=== PATIENT | male | born 1955 | race African-American/Black ===

== ENCOUNTER → 2018-02-20 08:24 | Outpatient (CLI) | payer OTHER, SELFPAY ==
--- NOTE | 2018-02-20 | DI.CT.S_ITS ---
PROCEDURE: CT CHEST ABD PEL W CON INDICATIONS: MALIGNANT NEOPLASM OF PROSTATE TECHNIQUE: After the administration of oral and intravenous contrast, 5 mm thick sections acquired from the lung apices to the symphysis. 5 mm coronal and sagittal reformats were performed, with additional 7 mm coronal MIP reformats through the lungs. For radiation dose reduction, the following was used: automated exposure control, adjustment of mA and/or kV according to patient size. COMPARISON: [facility], CT, CHEST/ABD/PEL WITH CONTRAST, 03/27/2016, 12:05. [facility], CT, ABDOMEN/PELVIS WITH CONTRAST, 05/06/2017, 10:57. [facility], CT, ABDOMEN/PELVIS WITH CONTRAST, 09/20/2017, 12:27. [facility], [place], BONE SCAN WHOLE BODY, 10/16/2017, 12:56. FINDINGS: Image quality: Excellent. CHEST: Lungs and pleura: Scattered 3-4 mm pulmonary nodules are again unchanged. Pleural-parenchymal scar in the left lower lobe is also unchanged. No acute airspace opacities. No pleural effusions or pneumothorax. Central and peripheral airways appear patent and normal in caliber. Mediastinum: Heart size is normal. No pericardial effusion. No mediastinal or hilar adenopathy by size criteria. Thoracic aorta and central pulmonary arteries are normal in size. Esophagus is normal in caliber. No hiatal hernia. Chest wall: Left-sided port with tip in the SVC. No axillary or supraclavicular adenopathy by size criteria. Thyroid gland appears normal. ABDOMEN: Solid organs: Liver is normal in size and enhancement. Gallbladder appears normal. Biliary system is non dilated. Pancreas enhances normally. Spleen is normal in size and enhancement. No adrenal nodules. Kidneys demonstrate normal size and enhancement, without hydronephrosis. Small partially exophytic cortical cyst interpolar left kidney and posterior right kidney. Peritoneum and bowel: Bowel loops demonstrate normal wall thickness and caliber. Normal appendix. No free fluid or air. Nodes and vessels: No retroperitoneal or mesenteric adenopathy by size criteria. Aorta and inferior vena cava are normal in size. Miscellaneous: Small fat filled umbilical hernia. PELVIS: Genitourinary: Bladder wall thickness is normal. Miscellaneous: No inguinal hernias or adenopathy. Bones: Sclerotic lesions consistent with bone metastases again noted such as medial right clavicle, superior sternum, L1 and right ilium No vertebral body compression fractures. IMPRESSION: 1. 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 See nuclear bone scan of 10/16/2017. 2. No soft tissue or ceci metastases identified. Numerous sub-5 mm pulmonary nodules and scarring left lower lobe appear unchanged from 2016 exams 3. Small bilateral renal cortical hypodensities consistent with cysts and unchanged. Dictated by: Tejinder Craig M.D. on 02/20/2018 at 13:44 Approved by: Tejinder Craig M.D. on 02/20/2018 at 14:03
== END ==
PROVIDERS: PCP General Practice; Visit Provider General Practice
DX: C61 Malignant neoplasm of prostate (principal); C79.51 Secondary malignant neoplasm of bone; R91.8 Other nonspecific abnormal finding of lung field; N28.1 Cyst of kidney, acquired
CPT/HCPCS: 71260; 74177; Q9967

== ENCOUNTER → 2018-06-24 07:17 | Outpatient (CLI) | payer OTHER, SELFPAY ==
--- NOTE | 2018-06-24 07:19 | DI.NM.S_ITS ---
PROCEDURE: [place] BONE SCAN WHOLE BODY RADIOPHARMACEUTICAL: 21.2 mCi Tc-99m MDP IV. INDICATIONS: PROSTATE CANCER TECHNIQUE: Delayed whole-body scintigrams were obtained approximately 3-4 hours after intravenous injection of radiotracer. Anterior and posterior views were acquired from vertex to feet. COMPARISON: [facility], CT, CT CHEST ABD PEL W CON, 06/24/2018, 8:57. [facility], [place], BONE SCAN WHOLE BODY, 10/16/2017, 12:56. FINDINGS: Since 10/16/17, there is new tracer activity involving the left upper thoracic spine possibly at the T2 costovertebral junction. Additional fainter focus of tracer activity seen at the left T10 costovertebral junction also new. Elsewhere there is unchanged thoracolumbar spine, sternum, pelvic and rib tracer activity. IMPRESSION: New or increased tracer activity in the region of the left T2 costovertebral junction, Additional new or increased tracer activity at the left T10 costovertebral junction. While these areas are not well correlated to a discrete lesion on the same day comparison CT, findings are suspicious for early new or progressive osseous metastases. Dictated by: Bulmaro Leal M.D. on 06/24/2018 at 14:48 Approved by: Bulmaro Leal M.D. on 06/24/2018 at 15:02
--- NOTE | 2018-06-24 09:20 | DI.CT.S_ITS ---
PROCEDURE: CT CHEST ABD PEL W CON INDICATIONS: restage prostate cancer TECHNIQUE: After the administration of oral and intravenous contrast, 5 mm thick sections acquired from the lung apices to the symphysis. 5 mm coronal and sagittal reformats were performed, with additional 7 mm coronal MIP reformats through the lungs. For radiation dose reduction, the following was used: automated exposure control, adjustment of mA and/or kV according to patient size. COMPARISON: [facility], CT, CHEST/ABD/PEL WITH CONTRAST, 08/29/2015, 10:43. [facility], CT, CT CHEST ABD PEL W CON, 02/20/2018, 9:42. FINDINGS: Image quality: Excellent. CHEST: Lungs and pleura: Platelike atelectasis or scar is present within the superior segment of the left lower lobe. Mild rounded atelectasis is present at the left lung base, unchanged from the study dated 02/20/18. No pulmonary nodules. No acute airspace opacities. No pleural effusion or pneumothorax. Mediastinum: Heart size is normal. No pericardial effusion. No mediastinal or hilar adenopathy by size criteria. Thoracic aorta and central pulmonary arteries are normal in size. Scattered atheromatous calcifications are present within the aortic arch. Esophagus is normal in caliber. No hiatal hernia. Chest wall: There is a left Port-A-Cath, the tip of which is in the cavoatrial junction. No axillary or supraclavicular adenopathy by size criteria. Thyroid gland is unremarkable. ABDOMEN: Solid organs: Liver is normal in size and enhancement. Gallbladder is unremarkable. Biliary system is non dilated. Pancreas enhances normally. Spleen is normal in size and enhancement. No adrenal nodules. Kidneys demonstrate normal size and enhancement, without hydronephrosis. Peritoneum and bowel: Bowel loops demonstrate normal wall thickness and caliber. The appendix is thin walled and gas filled. No free fluid or air. Nodes and vessels: No retroperitoneal or mesenteric adenopathy by size criteria. Aorta and inferior vena cava are normal in size. Miscellaneous: No ventral hernias. PELVIS: Genitourinary: Bladder wall thickness is normal. Miscellaneous: No inguinal adenopathy. There is a small left inguinal hernia. Bones: There is scattered sclerotic foci within the pelvis and thoracolumbar spine. These have a stable appearance when compared with the recent CT dated 02/20/18. These are decreased in size when compared with prior study suggesting response to therapy. No new bony lesions. IMPRESSION: 1. No findings to suggest tumor recurrence or metastasis. Dictated by: Rosemary Goodman M.D. on 06/24/2018 at 10:22 Approved by: Rosemary Goodman M.D. on 06/24/2018 at 10:30
== END ==
PROVIDERS: Family Provider Internal Medicine; PCP Internal Medicine; Visit Provider Internal Medicine Hematology & Oncology
DX: C61 Malignant neoplasm of prostate (principal)
CPT/HCPCS: 71260; 74177; 78306; A9503; Q9967

== ENCOUNTER → 2019-02-03 07:26 | Outpatient (CLI) | payer OTHER, SELFPAY ==
--- NOTE | 2019-02-03 07:28 | DI.NM.S_ITS ---
PROCEDURE: [place] BONE SCAN WHOLE BODY RADIOPHARMACEUTICAL: 21.5 mCi Tc-99m MDP IV. INDICATIONS: f/u prostate cancer TECHNIQUE: Delayed whole-body scintigrams were obtained approximately 3-4 hours after intravenous injection of radiotracer. Anterior and posterior views were acquired from vertex to feet. COMPARISON: [facility], CT, ABDOMEN/PELVIS WITH CONTRAST, 09/20/2017, 12:27. [facility], CT, CHEST/ABD/PEL WITH CONTRAST, 12/02/2015, 10:45. [place], [place], BONE SCAN WHOLE BODY, 08/29/2015, 12:56. [facility], CT, CT CHEST ABD PEL W CON, 02/03/2019, 9:13. [place], [place], BONE SCAN WHOLE BODY, 10/16/2017, 12:56. [place], [place] BONE SCAN WHOLE BODY, 06/24/2018, 11:00. FINDINGS: Again noted are foci of increased uptake in the left second, ninth and 10th ribs, right sixth and seventh ribs, L2 vertebral body, and the right iliacbone. Compared with the last bone scan of 06/24/2018, the findings are stable. Increased uptake in the upper sternum at the sternomanubrial junction appears unchanged and may be degenerative in nature. There is low level increased uptake in cervical, thoracic and lumbar spine with distribution indistinguishable from degenerative disc and facet disease; early metastasis to spine could be obscured by degenerative changes. There are foci of increased periarticular activity involving shoulders, sternoclavicular joints, elbows, wrists, hands, hips, SI joints, knees, ankles and feet, compatible with degenerative/arthritic changes. IMPRESSION: Stable bone scan. Dictated by: Odalys Martínez M.D. on 02/03/2019 at 17:19 Approved by: Odalys Martínez M.D. on 02/03/2019 at 18:29
--- NOTE | 2019-02-03 08:15 | DI.CT.S_ITS ---
PROCEDURE: CT CHEST ABD PEL W CON INDICATIONS: f/u prostate cancer TECHNIQUE: After the administration of oral and intravenous contrast, 5 mm thick sections acquired from the lung apices to the symphysis. 5 mm coronal and sagittal reformats were performed, with additional 7 mm coronal MIP reformats through the lungs. For radiation dose reduction, the following was used: automated exposure control, adjustment of mA and/or kV according to patient size. COMPARISON: [facility], CT, CT CHEST ABD PEL W CON, 06/24/2018, 8:57. FINDINGS: Image quality: Excellent. CHEST: Lungs and pleura: Scarring/atelectasis within superior segment of left lower lobe is again seen. Mild rounded atelectasis at left lung base is also seen. Both are unchanged from previous study. No discrete pulmonary nodule or mass. No pleural effusions or pneumothorax. Central and peripheral airways appear patent and normal in caliber. Mediastinum: Heart size is normal. No pericardial effusion. No mediastinal or hilar adenopathy by size criteria. Thoracic aorta and central pulmonary arteries are normal in size. Esophagus is normal in caliber. No hiatal hernia. Chest wall: Left chest wall Port-A-Cath tip is in SVC. No axillary or supraclavicular adenopathy by size criteria. Thyroid gland is within normal limits the. ABDOMEN: Solid organs: Liver is normal in size and enhancement. Gallbladder is unremarkable. Biliary system is non dilated. Pancreas enhances normally. Spleen is normal in size and enhancement. No adrenal nodules. Kidneys demonstrate normal size and enhancement, without hydronephrosis. Peritoneum and bowel: Bowel loops demonstrate normal wall thickness and caliber. No free fluid or air. Mild fecal stasis in the colon is seen. Normal appendix is visualized. Nodes and vessels: No retroperitoneal or mesenteric adenopathy by size criteria. Aorta and inferior vena cava are normal in size. Miscellaneous: No ventral hernias. PELVIS: Genitourinary: Bladder wall thickness is normal. Miscellaneous: No inguinal hernias or adenopathy. Bones: Multiple scattered sclerotic foci are again seen in the bony pelvis and thoracolumbar spine unchanged in size and appearance from prior studies. No gross new bony lesion is seen. No vertebral body compression fractures. IMPRESSION: 1. No significant changes from previous study. Stable appearing sclerotic foci scattered in bony pelvis and proximal lumbar spine, likely represent treated lesions. No new bony lesion is seen. 2. No other lesions are seen to suggest recurrence or new area of metastatic disease. Dictated by: Erasmo Rivera M.D. on 02/03/2019 at 14:42 Approved by: Erasmo Rivera M.D. on 02/03/2019 at 15:03
== END ==
PROVIDERS: Family Provider Internal Medicine; PCP Internal Medicine; Referring Provider Internal Medicine Hematology & Oncology
DX: C61 Malignant neoplasm of prostate (principal)
CPT/HCPCS: 71260; 74177; 78306; A9503; Q9967

== ENCOUNTER → 2020-04-06 09:58 | Outpatient (CLI) | payer MEDICARE, OTHER, SELFPAY ==
--- NOTE | 2020-04-06 10:02 | DI.NM.S_ITS ---
PROCEDURE: [place] BONE SCAN WHOLE BODY RADIOPHARMACEUTICAL: 22.0 mCi Tc-99m MDP IV. INDICATIONS: prostate cancer TECHNIQUE: Delayed whole-body scintigrams were obtained approximately 3-4 hours after intravenous injection of radiotracer. Anterior and posterior views were acquired from vertex to feet. COMPARISON: [facility], [place], CT CHEST ABD PEL W CON, 04/06/2020, 11:10. [place], [place] BONE SCAN WHOLE BODY, 06/24/2018, 11:00. [place], [place], BONE SCAN WHOLE BODY, 10/16/2017, 12:56. [place], [place] BONE SCAN WHOLE BODY, 02/03/2019, 10:59. FINDINGS: Foci of relative intense radiotracer uptake noted in the right 6th rib, right 7th rib, left 2nd rib, left 9th rib, left 10th rib, the L2 vertebral body, the upper sternum and in the right iliac bone which are stable compared to February 03, 2019. Relatively mild radiotracer uptake identified in the shoulders bilaterally, the sternoclavicular joints bilaterally, the spine, the sacroiliac joints bilaterally, knees bilaterally, ankles bilaterally and mid feet bilaterally compatible with osteoarthritis. No areas of photopenia identified in the osseous skeleton. No abnormal soft tissue uptake. Activity in the kidneys is normal and symmetric. IMPRESSION: 1. Osseous metastatic disease involving ribs bilaterally, the sternum, the L2 vertebral body in the right iliac bone stable compared to February 03, 2019. 2. No new osseous metastatic lesions. Dictated by: Mar Tony MD, PhD on 04/06/2020 at 14:27 Approved by: Mar Tony MD, PhD on 04/06/2020 at 14:31
--- NOTE | 2020-04-06 10:02 | DI.CT.S_ITS ---
PROCEDURE: CT CHEST ABD PEL W CON INDICATIONS: prostate cancer TECHNIQUE: After the administration of oral and intravenous contrast, 5 mm thick sections acquired from the lung apices to the symphysis. 5 mm coronal and sagittal reformats were performed, with additional 7 mm coronal MIP reformats through the lungs. For radiation dose reduction, the following was used: automated exposure control, adjustment of mA and/or kV according to patient size. COMPARISON: [facility], CT, CHEST/ABD/PEL WITH CONTRAST, 03/27/2016, 12:05. [facility], , CT THORAX/ABDOMEN/PELVIS WITH CONTRAST, 07/20/2019, 9:05. [facility], [place], [place] BONE SCAN WHOLE BODY, 04/06/2020, 13:38. [facility], CT, CT CHEST ABD PEL W CON, 02/20/2018, 9:42. [facility], CT, CT CHEST ABD PEL W CON, 02/03/2019, 9:13. [facility], CT, CT CHEST ABD PEL W CON, 06/24/2018, 8:57. FINDINGS: Image quality: Excellent. CHEST: Lungs and pleura: No acute airspace opacities. Stable scarring/atelectasis within the superior segment of the left lower lobe as well as mild rounded atelectasis of the left lung base. Multiple stable sub 5 mm pulmonary nodules scattered in the bilateral hemithoraces since March 27, 2016 CT examination. No pleural effusions or pneumothorax. Central and peripheral airways appear patent and normal in caliber. Mediastinum: Heart size is normal. Scattered atherosclerotic calcifications of the coronary arteries are noted. No pericardial effusion. No mediastinal or hilar adenopathy by size criteria. Thoracic aorta and central pulmonary arteries are normal in size. Esophagus is normal in caliber. No hiatal hernia. Chest wall: No axillary or supraclavicular adenopathy by size criteria. Thyroid gland is unremarkable. Left -sided tunneled port device is in place. ABDOMEN: Solid organs: Liver is normal in size and enhancement. Gallbladder is unremarkable. Biliary system is non dilated. Pancreas enhances normally. Spleen is normal in size and enhancement. No adrenal nodules. Kidneys demonstrate normal size and enhancement, without hydronephrosis. Redemonstration of multiple small bilateral renal hypodensities likely representing renal cysts. Peritoneum and bowel: Bowel loops demonstrate normal wall thickness and caliber. No free fluid or air. Normal appendix. Nodes and vessels: No retroperitoneal or mesenteric adenopathy by size criteria. Scattered atherosclerotic calcifications of the abdominal aorta and iliac vessels without aneurysmal dilatation. Miscellaneous: There is a fat-containing umbilical hernia without acute inflammation. No ventral hernias. PELVIS: Genitourinary: Bladder wall thickness is normal. Miscellaneous: No pelvic adenopathy. Left fat containing inguinal hernia without acute inflammatory changes. Bones: Multiple sclerotic lesions are again noted throughout the skeleton. There is corresponding increased radiotracer uptake in the medial left 2nd rib, L2 vertebral body, upper sternum, and the right iliac bone. No definite CT osseous lesions corresponding with increased radiotracer uptake in the right 6th and 7th ribs, left 2nd, 9th, and 10th ribs. There are small sclerotic lesions noted along the bilateral sacroiliac joints without focal increased uptake on today's bone scan. However, this may be obscured by moderate increased radiotracer uptake involving both sacroiliac joints. No acute vertebral body compression fractures. No new osseous lesions identified. IMPRESSION: 1. Stable CT appearance of widespread osseous metastatic disease without evidence for new lesions. There is correlating increased radiotracer uptake involving the medial left 2nd rib, L2 vertebral body, upper sternum, and the right iliac bone. Other areas of increased uptake are without correlating CT findings. 2. Otherwise, CT chest, abdomen, and pelvis without other new abnormalities to suggest disease recurrence or new areas of metastatic disease. 3. Other chronic findings as above. Dictated by: Jason Sabillon M.D. on 04/07/2020 at 20:23 Approved by: Jason Sabillon M.D. on 04/07/2020 at 20:59
== END ==
PROVIDERS: Family Provider Internal Medicine; PCP Internal Medicine; Referring Provider Internal Medicine; Visit Provider Internal Medicine Hematology & Oncology
DX: C61 Malignant neoplasm of prostate (principal); C79.51 Secondary malignant neoplasm of bone
CPT/HCPCS: 71260; 74177; 78306; A9503; Q9967

== ENCOUNTER → 2020-06-03 07:39 | Outpatient (CLI) | payer MEDICARE, OTHER, SELFPAY ==
--- NOTE | 2020-06-03 | DI.MRI.S_ITS ---
PROCEDURE: MR THORACIC SPINE WO/W CON INDICATIONS: Malignant neoplasm of prostate TECHNIQUE: Noncontrast sagittal T1 spin echo and T2 fast spin echo, sagittal STIR, axial T1 and T2 fast spin echo through the thoracic spine. After the administration of contrast, axial and sagittal T1 spin echo with fat saturation through the thoracic spine. COMPARISON: [facility], CT, CT CHEST ABD PEL W CON, 04/06/2020, 11:10. [facility], MR, MR LUMBAR SPINE WO/W CON, 06/03/2020, 9:04. [facility], [place], [place] BONE SCAN WHOLE BODY, 04/06/2020, 13:38. FINDINGS: Image quality: Excellent. Alignment and curvature: There is normal bony alignment. Marrow: 5 mm signal change present within the T5 vertebral body is indeterminate demonstrating T1 hypointensity and T2 hyperintensity although no definite enhancement. This could be due to small size. No fracture seen. A presumed Schmorl's node involving the superior endplate of T7. Spinal cord: Visualized spinal cord is of normal signal and size, without abnormal enhancement. Paraspinous soft tissues: No paravertebral masses or abnormal enhancement. Miscellaneous: Central canal and foramina appear widely patent at all scanned levels. IMPRESSION: Indeterminate focal signal change involving the T5 vertebral body, technically nonspecific and recommend continued close surveillance to exclude early metastatic disease. Dictated by: Bulmaro Leal M.D. on 06/03/2020 at 10:44 Approved by: Bulmaro Leal M.D. on 06/03/2020 at 10:53
--- NOTE | 2020-06-03 | DI.MRI.S_ITS ---
PROCEDURE: MR LUMBAR SPINE WO/W CON INDICATIONS: Malignant neoplasm of prostate TECHNIQUE: Noncontrast sagittal T1 spin echo and T2 fast spin echo, sagittal STIR, axial T1 and T2 fast spin echo through the lumbar spine. In cases with scoliosis, additional coronal T2 fast spin echo may be performed. After the administration of contrast, sagittal and axial T1 spin echo with fat saturation through the lumbar spine. COMPARISON: [facility], CT, CT CHEST ABD PEL W CON, 04/06/2020, 11:10. [facility], [place], [place] BONE SCAN WHOLE BODY, 04/06/2020, 13:38. [facility], MR, MR THORACIC SPINE WO/W CON, 06/03/2020, 8:39. FINDINGS: Image quality: Excellent. Alignment and curvature: There is normal bony alignment. Marrow: Several foci of abnormal signal can be seen within the bone marrow, with decreased T1 weighted and T2 weighted signal with minimally increased STIR signal and increased enhancement. The most prominent of these can be seen within the posterior L2 vertebral body, the superior T1 vertebral body and the L1 spinous process. Smaller abnormal foci are seen elsewhere. Spinal cord: Conus medullaris terminates at the L1 level. Visualized spinal cord demonstrates normal signal, without suspicious enhancement. Paraspinous soft tissues: No paravertebral masses or abnormal enhancement. T12-L1: Normal appearance. L1-L2: The disc height and disk signal are well-preserved. Mild generalized disc bulge is seen. No significant neural foraminal or central canal narrowing can be seen. L2-L3: The disc height and disc signal are relatively well preserved. Moderate disc bulge is seen, with a central disc protrusion. Mild facet joint hypertrophy is seen. There is mild to moderate right-sided and no significant left-sided neural foraminal narrowing seen. Moderate central canal narrowing is seen. L3-L4: The disc height and disk signal are well-preserved. Mild to moderate disc bulge is seen, with a central disc protrusion. Mild facet joint hypertrophy is seen. There is a mild right-sided and no significant left-sided neural foraminal narrowing seen. Moderate central canal narrowing is seen. L4-L5: The disc height and disk signal are well-preserved. Moderate disc bulge is seen, with a central disc protrusion. Moderate facet joint hypertrophy is seen. There is at least moderate bilateral neural foraminal narrowing seen. There is a degree of compression seen upon the exiting nerve roots. Moderate central canal narrowing is seen. L5-S1: The disc height and disk signal are well-preserved. Mild generalized disc bulge is seen. Mild facet joint hypertrophy is seen. Mild bilateral neural foraminal narrowing is seen. Minimal central canal narrowing is seen. IMPRESSION: Multiple foci of abnormal bone marrow signal are seen, which are confirmatory for bony metastatic disease. Multiple levels of degenerative change are seen, which are most prominent at the L4-5 level. Dictated by: Maurizio Bridgse M.D. on 06/03/2020 at 9:29 Approved by: Maurizio Bridges M.D. on 06/03/2020 at 9:38
--- NOTE | 2020-06-03 07:41 | DI.MRI.S_ITS ---
PROCEDURE: MR PELIS WO/W CON INDICATIONS: prostate cancer ,metastatic, rising PSA TECHNIQUE: Coronal HASTE, axial T1 FSE with fat saturation, 3-plane nonbreath-hold T2 FSE. After the administration of contrast, dynamic axial, delayed axial and coronal VIBE or 2-D FLASH with fat saturation through the pelvis. Optional diffusion weighted imaging and ADC may be performed. COMPARISON: [facility], CT, CT CHEST ABD PEL W CON, 04/06/2020, 11:10. [facility], [place], [place] BONE SCAN WHOLE BODY, 04/06/2020, 13:38. FINDINGS: Image quality: Diffusion weighted and dynamic contrast enhanced images are diagnostic. Prostate: Gland size is 3 x 2.2 x 3.4 cm; ellipsoid gland volume is 12 mL. Diffusely decreased T2 signal intensity throughout the peripheral zone and central zone is most likely secondary to prior treatment. A focal area of capsular irregularity is seen at the left lateral aspect of the mid gland with associated early contrast hyperenhancement that involves the left peripheral zone and extends into the central zone, which could represent a lesion with focal extracapsular extension. Lesion abuts the neurovascular bundle without definite involvement. No convincing focal diffusion restriction is seen on DWI/ADC images. The seminal vesicles are small and symmetric in size. Genitourinary system: Bladder wall thickness is normal. Distal ureters are non distended. Bowel and peritoneum: No pathologic free pelvic fluid. Inferior colon and small bowel loops are normal in caliber. Nodes and vessels: No pelvic or inguinal adenopathy by size criteria. Iliac vessels are normal in caliber. Soft tissues: Small fat containing inguinal hernias are seen bilaterally. Bones: A 2.2 cm osseous lesion is seen in the posterior right iliac bone that is suspicious for osseous metastatic disease. An 8 mm osseous lesion is seen in the left anterior iliac bone. A 5 mm focus is seen in the left ischial tuberosity. Additional scattered tiny foci of abnormal signal in the included pelvic bones may represent metastatic disease. There is fatty replacement of the marrow in the lower sacrum and coccyx that could represent post radiation changes. IMPRESSION: 1. Focal 9 mm area of capsular irregularity at the left lateral aspect of the prostate with ill-defined early contrast hyperenhancement is suspicious for patient's known primary prostate carcinoma. However, there is no significant diffusion restriction in this location and T2 weighted images demonstrate diffusely decreased intensity throughout the prostate that may be related to prior treatment changes. No well-defined focal lesion is seen. The area of capsular irregularity abuts the neurovascular bundle without definite involvement. Recommend correlation with clinical history. 2. Multiple marrow placing masses are seen throughout the pelvic bones, the largest of which is located in the right posterior iliac bone. Findings are consistent with patient's known osseous metastatic disease. 3. No significantly enlarged pelvic lymph nodes are identified. Dictated by: Walter Rivera M.D. on 06/03/2020 at 13:33 Approved by: Walter Rivera M.D. on 06/03/2020 at 14:20
== END ==
PROVIDERS: Family Provider Internal Medicine; PCP Internal Medicine; Referring Provider Internal Medicine Hematology & Oncology; Visit Provider Internal Medicine Hematology & Oncology
DX: C61 Malignant neoplasm of prostate (principal); C79.51 Secondary malignant neoplasm of bone; R97.21 Rising PSA following treatment for malignant neoplasm of prostate; M47.816 Spondylosis without myelopathy or radiculopathy, lumbar region
CPT/HCPCS: 72157; 72158; 72197; A9579

== ENCOUNTER → 2020-08-31 08:04 | Outpatient (CLI) | payer MEDICARE, OTHER, SELFPAY ==
--- NOTE | 2020-08-31 08:07 | DI.NM.S_ITS ---
PROCEDURE: [place] BONE SCAN WHOLE BODY RADIOPHARMACEUTICAL: 22.0 mCi Tc-99m MDP IV. INDICATIONS: metastatic prostate cancer TECHNIQUE: Delayed whole-body scintigrams were obtained approximately 3-4 hours after intravenous injection of radiotracer. Anterior and posterior views were acquired from vertex to feet. COMPARISON: [place], [place], BONE SCAN WHOLE BODY, 10/16/2017, 12:56. [place], [place] BONE SCAN WHOLE BODY, 02/03/2019, 10:59. [place] BONE SCAN WHOLE BODY, 04/06/2020, 13:38. [facility], CT, CT CHEST ABD PEL W CON, 08/31/2020, 9:13. FINDINGS: Again noted are foci of increased uptake involving left 2nd, 9th and 10th ribs, the right 6th and 7th ribs, L2 vertebral body, right iliac bone adjacent to the sacroiliac joint, unchanged compared with the last bone scan on 04/06/2020. No new lesions are identified. Increased uptake in the sternomanubrial junction is likely degenerative in nature. Degenerative changes are noted in multiple peripheral joints. IMPRESSION: Stable bone scan with multiple foci of abnormal uptake suspicious compatible with osseous metastases. Dictated by: Odalys Martínez M.D. on 08/31/2020 at 14:05 Approved by: Odalys Martínez M.D. on 08/31/2020 at 14:18
--- NOTE | 2020-08-31 09:27 | DI.CT.S_ITS ---
PROCEDURE: CT CHEST ABD PEL W CON INDICATIONS: metastatic prostate cancer TECHNIQUE: After the administration of oral and intravenous contrast, 5 mm thick sections acquired from the lung apices to the symphysis. 5 mm coronal and sagittal reformats were performed, with additional 7 mm coronal MIP reformats through the lungs. For radiation dose reduction, the following was used: automated exposure control, adjustment of mA and/or kV according to patient size. COMPARISON: [facility], [place], [place] BONE SCAN WHOLE BODY, 04/06/2020, 13:38. [facility], CT, CT CHEST ABD PEL W CON, 04/06/2020, 11:10. FINDINGS: Image quality: Excellent. CHEST: Lungs and pleura: Chronic scar formation in the posterior aspect of the left upper and lower lobes. Chronic atelectatic changes/scar at the posterior left lung base with thickening of the overlying subpleural fat. Several sub 5 mm biapical ground-glass lung nodules, unchanged in size or number. No new lung nodule. No acute airspace opacities. No pleural effusions or pneumothorax. Central and peripheral airways appear patent and normal in caliber. Mediastinum: Heart size is normal. No pericardial effusion. No mediastinal or hilar adenopathy by size criteria. Small bilateral hilar calcifications. Thoracic aorta and central pulmonary arteries are normal in size. Esophagus is normal in caliber. No hiatal hernia. Chest wall: No axillary or supraclavicular adenopathy by size criteria. Thyroid gland is normal as visualized. Left chest MediPort is present. ABDOMEN: Solid organs: Liver is normal in size and enhancement. Gallbladder is normal . Biliary system is non dilated. Pancreas enhances normally. Spleen is normal in size and enhancement. No adrenal nodules. Kidneys demonstrate normal size and enhancement, without hydronephrosis. Several subcentimeter cortical cysts bilaterally. Peritoneum and bowel: Bowel loops demonstrate normal wall thickness and caliber. No free fluid or air. Normal appendix. Nodes and vessels: No retroperitoneal or mesenteric adenopathy by size criteria. Aorta and inferior vena cava are normal in size. Mild abdominal aortic atherosclerotic calcification. Miscellaneous: Tiny fat containing umbilical hernia. A few probable sebaceous cyst or injection sites in the left mid abdomen subcutaneous tissue. PELVIS: Genitourinary: Bladder wall thickness is normal. Prostate gland size is diminutive. Miscellaneous: No inguinal hernias or adenopathy. Bones: Osseous lesions seen in the right posterior iliac bone and sclerosis of the posteromedial left 2nd rib arc are unchanged. Heterogeneous marrow signal along both sacroiliac joints is less marked. No definite new bone lesion.. No vertebral body compression fractures. IMPRESSION: 1. No evidence of new metastatic disease in the chest, abdomen, or pelvis. 2. Scattered osseous lesions with little change by CT compared to the prior study. Dictated by: Mesha Olson M.D. on 08/31/2020 at 10:46 Approved by: Mesha Olson M.D. on 08/31/2020 at 10:59
== END ==
PROVIDERS: Family Provider Internal Medicine; Referring Provider Internal Medicine Hematology & Oncology; Visit Provider Internal Medicine Hematology & Oncology
DX: C61 Malignant neoplasm of prostate (principal); R91.8 Other nonspecific abnormal finding of lung field; M89.9 Disorder of bone, unspecified
CPT/HCPCS: 71260; 74177; 78306; A9503; Q9967

== ENCOUNTER → 2020-12-28 09:32 | Outpatient (CLI) | payer MEDICARE, OTHER, SELFPAY ==
--- NOTE | 2020-12-28 09:37 | DI.NM.S_ITS ---
PROCEDURE: [place] BONE SCAN WHOLE BODY RADIOPHARMACEUTICAL: 22.8 mCi Tc-99m MDP IV. INDICATIONS: prostate cancer TECHNIQUE: Delayed whole-body scintigrams were obtained approximately 3-4 hours after intravenous injection of radiotracer. Anterior and posterior views were acquired from vertex to feet. COMPARISON: [place], [place] BONE SCAN WHOLE BODY, 04/06/2020, 13:38. [facility], CT, CT CHEST ABD PEL W CON, 12/28/2020, 10:59. [place], [place] BONE SCAN WHOLE BODY, 08/31/2020, 12:40. FINDINGS: Physiologic uptake is noted within the kidneys and bladder. As identified on prior exam, increased uptake is noted involving the left 2nd, 9th and 10th ribs as well as the right 6th and 7th ribs. Slight appearance of increased uptake is noted at the right iliac bone as well as L2 vertebral body. No new lesions are identified. Degenerative changes are noted the peripheral joints as well as the sternal manubrial joint. IMPRESSION: Stable interval exam demonstrating areas of abnormal uptake suspicious for osseous metastatic disease. Dictated by: Esther Sow M.D. on 12/28/2020 at 16:56 Approved by: Esther Sow M.D. on 12/28/2020 at 16:58
--- NOTE | 2020-12-28 11:01 | DI.CT.S_ITS ---
PROCEDURE: CT CHEST ABD PEL W CON INDICATIONS: prostate cancer TECHNIQUE: After the administration of oral and intravenous contrast, 5 mm thick sections acquired from the lung apices to the symphysis. 5 mm coronal and sagittal reformats were performed, with additional 7 mm coronal MIP reformats through the lungs. For radiation dose reduction, the following was used: automated exposure control, adjustment of mA and/or kV according to patient size. COMPARISON: [facility], [place], [place] BONE SCAN WHOLE BODY, 08/31/2020, 12:40. [facility], CT, CT CHEST ABD PEL W CON, 02/03/2019, 9:13. [facility], CT, CT CHEST ABD PEL W CON, 08/31/2020, 9:13. FINDINGS: Image quality: Excellent. CHEST: Lungs and pleura: Multiple small pulmonary nodules measuring 0.4 cm or less and are similar to the prior exam. This could be seen on dating back to at least 2018. Mild scarring in the left lung. No pleural effusions or pneumothorax. Central and peripheral airways appear patent and normal in caliber. Mediastinum: Left-sided port with the catheter tip in the middle 3rd of the SVC. Heart size is normal. No pericardial effusion. No mediastinal or hilar adenopathy by size criteria. Thoracic aorta and central pulmonary arteries are normal in size. Moderate plaque at the aortic arch. Esophagus is normal in caliber. No hiatal hernia. Chest wall: No axillary or supraclavicular adenopathy by size criteria. Thyroid gland is unremarkable. ABDOMEN: Solid organs: Liver is normal in size and enhancement. No focal lesion. Gallbladder is unremarkable. Biliary system is non dilated. Pancreas enhances normally. Spleen is normal in size and enhancement. No adrenal nodules. Kidneys demonstrate normal size and enhancement, without hydronephrosis. Bilateral cortical hypodensities which are too small to further characterize but likely benign cysts and are unchanged. Peritoneum and bowel: Bowel loops demonstrate normal wall thickness and caliber. Normal appendix. No free fluid or air. Nodes and vessels: No retroperitoneal or mesenteric adenopathy by size criteria. Aorta and inferior vena cava are normal in size. Miscellaneous: No ventral hernias. PELVIS: Genitourinary: Bladder wall thickness is normal. Miscellaneous: No inguinal hernias or adenopathy. Bones: Sclerotic lesion at left 2nd rib posteriorly, (09/11). Sclerotic focus in the L1 vertebral body, unchanged. Sclerotic lesion in the right ilium and sacrum are unchanged. No new lesions identified. Suspect L2 Schmorl's node which is unchanged since at least 2019. No vertebral body compression fractures. IMPRESSION: 1. No new or enlarging sites of metastatic disease identified. 2. Stable several sclerotic osseous lesions. 3. No adenopathy. 4. Stable appearing nonspecific small pulmonary nodules. Dictated by: Сергей Viveros M.D. on 12/28/2020 at 13:23 Approved by: Сергей Viveros M.D. on 12/28/2020 at 14:09
== END ==
PROVIDERS: Family Provider Internal Medicine; PCP Internal Medicine; Referring Provider Internal Medicine Hematology & Oncology; Visit Provider Internal Medicine Hematology & Oncology
DX: C61 Malignant neoplasm of prostate (principal)
CPT/HCPCS: 71260; 74177; 78306; A9503; Q9967

== ENCOUNTER → 2021-04-12 07:28 | Outpatient (CLI) | payer MEDICARE, OTHER, SELFPAY ==
--- NOTE | 2021-04-12 07:30 | DI.NM.S_ITS ---
PROCEDURE: [place] BONE SCAN WHOLE BODY RADIOPHARMACEUTICAL: 20.6 mCi Tc-99m MDP IV. INDICATIONS: prostate cancer TECHNIQUE: Delayed whole-body scintigrams were obtained approximately 3-4 hours after intravenous injection of radiotracer. Anterior and posterior views were acquired from vertex to feet. COMPARISON: [facility], [place], CT CHEST ABD PEL W CON, 04/12/2021, 8:47. [place], [place] BONE SCAN WHOLE BODY, 04/06/2020, 13:38. [place] BONE SCAN WHOLE BODY, 08/31/2020, 12:40. [place] BONE SCAN WHOLE BODY, 12/28/2020, 13:27. FINDINGS: Foci of increased are again noted in the posterior aspect of the left 2nd rib, posterior medial aspect of the left 9th rib, posterior aspect of the left 10th rib, and posterior medial aspect of the right 5th and 6th ribs. Mildly increased uptake is again noted in the inferior aspect of the right iliac bone adjacent to the sacroiliac joint. Overall, there is no significant change. Increased paranasal uptake is noted, likely secondary to paranasal sinus disease. No lesions are identified in skull, sternum, clavicles, scapulae, ribs, bony pelvis, and visualized shafts of the long bones. There are foci of low level increased uptake in cervical, thoracic and lumbar spine with distribution indistinguishable from degenerative disc and facet disease. There are foci of increased periarticular activity involving shoulders, sternoclavicular joints, wrists, hands, hips, SI joints, knees, and the left ankle, compatible with degenerative/arthritic changes. IMPRESSION: Stable bone scan with foci of suspicious bone lesions. Dictated by: Odalys Martínez M.D. on 04/12/2021 at 13:24 Approved by: Odalys Martínez M.D. on 04/12/2021 at 13:36
--- NOTE | 2021-04-12 08:45 | DI.CT.S_ITS ---
PROCEDURE: CT CHEST ABD PEL W CON INDICATIONS: prostate cancer TECHNIQUE: After the administration of oral and intravenous contrast, axial sections acquired from the supraclavicular neck to the pubic symphysis. Coronal and sagittal reformats were performed. For radiation dose reduction, the following was used: automated exposure control, adjustment of mA and/or kV according to patient size. COMPARISON: [facility], CT, CT CHEST ABD PEL W CON, 12/28/2020, 10:59. FINDINGS: Image quality: Excellent. CHEST: Lower Neck: No enlarged lymph nodes. Thyroid: Within normal limits. Axillae: No enlarged lymph nodes. Chest Wall: Unremarkable. Lungs and Airways: Stable tiny bilateral pulmonary nodules, likely benign. No new or increasing pulmonary nodules noted. Linear scarring, left lung. No acute pulmonary process. Pleura: No pneumothorax or pleural effusions. Heart: Heart size is normal. No pericardial effusion. Thoracic Vessels: The aorta and pulmonary arteries demonstrate normal size. Mediastinum and Ivy: No enlarged lymph nodes. Esophagus: No wall thickening. No hiatal hernia. ABDOMEN: Liver: Unremarkable. Gallbladder: Unremarkable. Biliary ducts: Unremarkable. Pancreas: Unremarkable. Spleen: Unremarkable. Adrenal Glands: Unremarkable. Kidneys and Ureters: Unremarkable. Stomach and Bowel: Stomach, small bowel loops, and colon are unremarkable. Peritoneum: No abnormal intraperitoneal fluid. No free air. Ventral Wall: No hernia. Abdominal Nodes: No retroperitoneal or mesenteric adenopathy by size criteria. Vessels: Aorta and inferior vena cava are normal in size. PELVIS: Pelvic Organs: Unremarkable. Bladder: Unremarkable. Pelvic Nodes: No enlarged lymph nodes. Miscellaneous: Bilateral small fat containing inguinal hernias. No inguinal adenopathy. Bones: Stable sclerotic left posterior 2nd rib lesion, current image 12/2. Stable very subtle L1 vertebral body sclerotic focus, image 46/6. Stable very subtle faintly peripherally sclerotic and central low-density medial right iliac bone lesion, current image 101/2. Stable small sclerotic focus, medial right iliac bone, current image 104/2. Stable nonspecific sclerotic appearance on either side of the right SI joint in both the medial iliac bone and lateral sacrum on image 108/2. Probable Schmorl's node involving the posterior inferior endplate of L2, as previously noted. IMPRESSION: 1. Stable bony metastatic disease. No new or increasing lesions. 2. Stable tiny bilateral pulmonary nodules, presumed benign. 3. No other evidence of metastatic disease in the chest, abdomen, and pelvis. Dictated by: Kendall Valle M.D. on 04/12/2021 at 12:42 Approved by: Kendall Valle M.D. on 04/12/2021 at 12:53
== END ==
PROVIDERS: Family Provider Internal Medicine; PCP Internal Medicine; Referring Provider Internal Medicine Hematology & Oncology; Visit Provider Internal Medicine Hematology & Oncology
DX: C61 Malignant neoplasm of prostate (principal); C79.51 Secondary malignant neoplasm of bone; R91.8 Other nonspecific abnormal finding of lung field
CPT/HCPCS: 71260; 74177; 78306; A9503

== ENCOUNTER → 2021-05-11 08:49 | Outpatient (CLI) | payer MEDICARE, OTHER, SELFPAY ==
--- NOTE | 2021-05-11 08:51 | DI.RAD.S_ITS ---
PROCEDURE: XR DEXA AXIAL SKELETON INDICATIONS: prostate cancer, bone pain (ankle), osteoporosis COMPARISON: Located [facility], , DEXA AXIAL SKELETON, 03/27/2016, 12:08. FINDINGS: This blank DEXA report has been sent in error by the PACS system. The correct and complete report will be forthcoming in 1-2 days. Thank you for your patience and understanding. Dictated by: Zane Murray M.D. on 05/11/2021 at 11:11 Approved by: Zane Murray M.D. on 05/11/2021 at 11:13
== END ==
PROVIDERS: Family Provider Internal Medicine; PCP Internal Medicine; Referring Provider Internal Medicine Hematology & Oncology; Visit Provider Internal Medicine Hematology & Oncology
DX: M81.0 Age-related osteoporosis without current pathological fracture (principal); C61 Malignant neoplasm of prostate
CPT/HCPCS: 77080

== ENCOUNTER → 2021-07-06 07:27 | Outpatient (CLI) | payer MEDICARE, OTHER, SELFPAY ==
--- NOTE | 2021-07-06 07:28 | DI.US.S_ITS ---
PROCEDURE: [place] ABDOMEN COMPLETE INDICATIONS: METASTATIC PROSTATE CANCER TECHNIQUE: Real-time scanning was performed of the abdominal and retroperitoneal organs, with image documentation. COMPARISON: None. FINDINGS: Liver: Normal appendix parenchymal echogenicity and echotexture. No focal liver lesion identified. Gallbladder: Normally distended. No wall thickening or pericholecystic fluid. No shadowing gallstone or calculus. Biliary ducts: Normal caliber. Pancreas: Visualized portions of the pancreas are sonographically normal. Spleen: Spleen is normal in size and homogeneous in echotexture. Kidneys: Simple cyst in the right kidney measuring 1.1 centimeters. In the left kidney there is a 1.4 centimeter septated cyst. Otherwise normal appearance of both kidneys. Aorta: Visualized aorta is normal in caliber at less than 3 cm. Iliacs: Proximal common iliac arteries are normal in caliber at less than 2.5 cm. IVC: Intrahepatic inferior vena cava is patent. Miscellaneous: No free abdominal fluid. IMPRESSION: No significant abnormality demonstrated sonographically. Dictated by: Yao Sanchez M.D. on 07/06/2021 at 9:11 Approved by: Yao Sanchez M.D. on 07/06/2021 at 9:12
== END ==
PROVIDERS: Family Provider Internal Medicine; PCP Internal Medicine; Referring Provider Internal Medicine Hematology & Oncology; Visit Provider Internal Medicine Hematology & Oncology
DX: C61 Malignant neoplasm of prostate (principal); R74.01 Elevation of levels of liver transaminase levels; N28.1 Cyst of kidney, acquired
CPT/HCPCS: 76700

== ENCOUNTER → 2021-11-27 08:56 | Outpatient (CLI) | payer MEDICARE, OTHER, SELFPAY ==
--- NOTE | 2021-11-27 08:58 | DI.NM.S_ITS ---
PROCEDURE: [place] BONE SCAN WHOLE BODY RADIOPHARMACEUTICAL: 20.1 mCi Tc-99m MDP IV. INDICATIONS: prostate cancer TECHNIQUE: Delayed whole-body scintigrams were obtained approximately 3-4 hours after intravenous injection of radiotracer. Anterior and posterior views were acquired from vertex to feet. COMPARISON: [facility], CT, CT CHEST ABD PEL W CON, 04/12/2021, 8:47. [place], [place] BONE SCAN WHOLE BODY, 04/12/2021, 10:56. [place], [place] BONE SCAN WHOLE BODY, 12/28/2020, 13:27. [place], [place] BONE SCAN WHOLE BODY, 08/31/2020, 12:40. [place], [place] BONE SCAN WHOLE BODY, 04/06/2020, 13:38. [facility], CT, CT CHEST ABD PEL W CON, 11/27/2021, 10:17. FINDINGS: There are foci of increased uptake involving the posterior aspect of the left 2nd rib, posterior medial aspect of the left 9th rib, posterior aspect of the left 10th rib, the posterior medial aspect of the right 5th, 6th and 7th ribs, and the right iliac bone adjacent to the sacroiliac joint, consistent with osseous metastasis. Compared to the last exam, there is no significant change. Foci of increased periarticular activity are noted in shoulders bilaterally, sternoclavicular joints bilaterally, sternomanubrial junction, wrists bilaterally, hips bilaterally, and left ankle, compatible with degenerative/arthritic changes. IMPRESSION: Stable bone scan with multiple foci of increased activity compatible with osseous metastasis. Dictated by: Odalys Martínez M.D. on 11/27/2021 at 13:59 Approved by: Odalys Martínez M.D. on 11/27/2021 at 14:27
--- NOTE | 2021-11-27 10:39 | DI.CT.S_ITS ---
PROCEDURE: CT CHEST ABD PEL W CON INDICATIONS: prostate cancer TECHNIQUE: After the administration of oral and intravenous contrast, axial sections acquired from the supraclavicular neck to the pubic symphysis. Coronal and sagittal reformats were performed. For radiation dose reduction, the following was used: automated exposure control, adjustment of mA and/or kV according to patient size. COMPARISON: [facility], CT, CT CHEST ABD PEL W CON, 04/12/2021, 8:47. FINDINGS: Image quality: Excellent. CHEST: Lungs and pleura: 2 millimeter nodules are seen scattered in both lungs, most predominant in the left upper lobe, unchanged compared to the prior CT. No acute air space opacities. No pleural effusions or pneumothorax. Central and peripheral airways are patent and normal in caliber. Mediastinum: Heart size is normal. The coronary arteries have atherosclerotic calcifications. No pericardial effusion. No mediastinal adenopathy by size criteria. Thoracic aorta and central pulmonary arteries are normal in size. Esophagus is normal in caliber. No hiatal hernia. Chest wall: No axillary or supraclavicular adenopathy by size criteria. Thyroid gland is normal . ABDOMEN: Solid organs: Liver: The liver has no mass or intrahepatic biliary ductal dilatation. The portal vein and hepatic veins are patent. Biliary: The gallbladder has no gallstones, pericholecystic fluid, gallbladder wall thickening, or surrounding inflammatory change. Pancreas: The pancreas has no mass or ductal dilatation. There is no surrounding inflammation. Spleen: Normal size. There are no masses. Adrenals: No hypertrophy or nodules. Kidneys: No obstructive calculus or hydronephrosis. Bilateral simple subcentimeter cortical cysts are unchanged. No solid mass. No cystic mass. Bowel: The distal esophagus and stomach are normal. The small bowel has a normal caliber and appearance. The terminal ileum is normal. The large bowel has a normal caliber and appearance. The appendix is normal. No free fluid or air. Nodes and vessels: No retroperitoneal or mesenteric adenopathy by size criteria. The aorta has atherosclerosis with no aneurysmal dilatation. Abdominal wall: Small fat containing bilateral inguinal hernias. PELVIS: Genitourinary: The bladder has no wall thickening or mass. No bladder calcifications. BONES: Stable sclerosis of the left posteromedial 2nd rib series 2, image 11. Stable subtle sclerotic lesion in the right medial iliac bone series 2, image 100. Stable sclerosis of the right sacroiliac joint series 2, image 107. Stable sclerosis of L1 series 6, image 50 and stable lytic/sclerotic lesion of the inferior posterior endplate of L2, likely a Schmorl's node. No vertebral body compression fractures. IMPRESSION: 1. Stable sclerotic lesions consistent with metastatic disease compared to the prior CT on 04/12/2021. 2. Stable 2 millimeter pulmonary nodules, presumed benign. 2. No evidence of adenopathy or metastatic disease to the chest, abdomen, or pelvis. Dictated by: Tyler James M.D. on 11/27/2021 at 11:44 Approved by: Tyler James M.D. on 11/27/2021 at 11:57
== END ==
PROVIDERS: Family Provider Internal Medicine; PCP Internal Medicine; Referring Provider Internal Medicine Hematology & Oncology; Visit Provider Internal Medicine Hematology & Oncology
DX: C61 Malignant neoplasm of prostate (principal); C79.51 Secondary malignant neoplasm of bone; R91.8 Other nonspecific abnormal finding of lung field; K40.20 Bilateral inguinal hernia, without obstruction or gangrene, not specified as recurrent
CPT/HCPCS: 71260; 74177; 78306; A9503

== ENCOUNTER → 2022-07-06 06:50 | Outpatient (CLI) | payer MEDICARE, OTHER, SELFPAY ==
--- NOTE | 2022-07-06 06:50 | DI.CT.S_ITS ---
PROCEDURE: CT CHEST ABD PEL W CON INDICATIONS: prostate cancer TECHNIQUE: After the administration of oral and intravenous contrast, axial sections acquired from the supraclavicular neck to the pubic symphysis. Coronal and sagittal reformats were performed. For radiation dose reduction, the following was used: automated exposure control, adjustment of mA and/or kV according to patient size. COMPARISON: [facility], CT, CHEST/ABD/PEL WITH CONTRAST, 08/29/2015, 10:43. [facility], CT, CT CHEST ABD PEL W CON, 04/12/2021, 8:47. [facility], [place]ODY, 04/12/2021, 10:56. [place], [place] WHOLE BODY, 11/27/2021, 11:59. [facility], CT, CT CHEST ABD PEL W CON, 11/27/2021, 10:17. FINDINGS: Image quality: Excellent. CHEST: Lower Neck: No enlarged lymph nodes. Thyroid: Within normal limits. Axillae: No enlarged lymph nodes. Chest Wall: Unremarkable. There is a Port-A-Cath in the left anterior chest. Lungs and Airways: There is mild pleural thickening or trace pleural effusion in the left hemithorax. A linear density in the right lower lobe is most likely a discoid atelectasis. Small lung nodules are present. Reference nodules are listed in the following: Nodule 1: 3 mm; series 5, image 79; right upper lobe; previously 2 mm. Nodule 2: 3 mm; series 5 image 48; left upper lobe; previously 2 mm. Nodule 3: 3 mm; series 5 image 76; left upper lobe; stable. Nodule 3: 3 mm; series 5, image 102; left lower lobe; previously 2 mm. Pleura: No pneumothorax or pleural effusions. Heart: Heart size is normal. No pericardial effusion. Moderate coronary artery calcification. Thoracic Vessels: The aorta and pulmonary arteries demonstrate normal size. Mediastinum and Ivy: No enlarged lymph nodes. Esophagus: No wall thickening. Small hiatal hernia. ABDOMEN: Liver: Unremarkable. Gallbladder: Unremarkable. Biliary ducts: Unremarkable. Pancreas: Unremarkable. Spleen: Unremarkable. Adrenal Glands: Unremarkable. Kidneys and Ureters: Multiple low-density cortical nodules are seen in kidneys bilaterally, unchanged. Stomach and Bowel: Stomach, small bowel loops, and colon are unremarkable. Moderate amount of stool in colon. Peritoneum: No abnormal intraperitoneal fluid. No free air. Ventral Wall: There is a small fat containing umbilical hernia. Abdominal Nodes: No retroperitoneal or mesenteric adenopathy by size criteria. Vessels: Aorta and inferior vena cava are normal in size. PELVIS: Pelvic Organs: Prostate is normal in size. Bladder: Unremarkable. Pelvic Nodes: No enlarged lymph nodes. Miscellaneous: Small fat containing inguinal hernias are seen. Bones: There are sclerotic lesions in the posterior aspect of the left secondary, L1, L2, right iliac bone, unchanged, compatible with osseous metastases. There is a Schmorl's node in the inferior endplate of L2 superimposed on metastasis. IMPRESSION: 1. Stable metastatic bone lesions. 2. Small lung nodules are present bilaterally, slightly increased in size. Please correlate with tumor markers. Recommend a short-term follow-up chest CT in 3 months. 3. Trace left pleural effusion or pleural thickening. There is left lower lobe scars and atelectasis. 4. No lymphadenopathy in thorax, abdomen or pelvis. Dictated by: Odalys Martínez M.D. on 07/06/2022 at 11:15 Approved by: Odalys Martínez M.D. on 07/06/2022 at 11:40
--- NOTE | 2022-07-06 06:50 | DI.NM.S_ITS ---
PROCEDURE: [place] BONE SCAN WHOLE BODY RADIOPHARMACEUTICAL: 19.7 mCi Tc-99m MDP IV. INDICATIONS: prostate cancer TECHNIQUE: Delayed whole-body scintigrams were obtained approximately 3-4 hours after intravenous injection of radiotracer. Anterior and posterior views were acquired from vertex to feet. COMPARISON: [place], [place] BONE SCAN WHOLE BODY, 04/12/2021, 10:56. [place], [place] BONE SCAN WHOLE BODY, 12/28/2020, 13:27. [place], [place] BONE SCAN WHOLE BODY, 08/31/2020, 12:40. [facility], CT, CT CHEST ABD PEL W CON, 07/06/2022, 8:15. [place], [place] BONE SCAN WHOLE BODY, 11/27/2021, 11:59. FINDINGS: There are multiple foci of increased uptake involving the posterior medial aspect of the left 2nd rib and 9th rib, posterior medial aspect of the right 5th, 6th and 7th ribs, right iliac, consistent with metastasis. When compared to the last bone scan, there is no significant change. IMPRESSION: Stable osseous metastatic disease. Dictated by: Odalys Martínez M.D. on 07/06/2022 at 16:55 Approved by: Odalys Martínez M.D. on 07/06/2022 at 16:58
== END ==
PROVIDERS: Referring Provider Internal Medicine Hematology & Oncology; Visit Provider Internal Medicine Hematology & Oncology
DX: C61 Malignant neoplasm of prostate (principal); C79.51 Secondary malignant neoplasm of bone; R91.8 Other nonspecific abnormal finding of lung field; I25.10 Atherosclerotic heart disease of native coronary artery without angina pectoris; K44.9 Diaphragmatic hernia without obstruction or gangrene; K42.9 Umbilical hernia without obstruction or gangrene
CPT/HCPCS: 71260; 74177; 78306; A9503; Q9967

== ENCOUNTER → 2022-11-05 06:44 | Outpatient (CLI) | payer MEDICARE, OTHER, SELFPAY ==
--- NOTE | 2022-11-05 06:46 | DI.CT.S_ITS ---
PROCEDURE: CT CHEST WO CON INDICATIONS: Pulmonary Nodule TECHNIQUE: Noncontrast 2.0-2.5 mm thick sections acquired from the pulmonary apices to the posterior costophrenic angles. 7 mm thick axial MIP and 5 mm coronal and sagittal reformats were then acquired. A low radiation dose technique was utilized. COMPARISON: [facility], CT, CT CHEST ABD PEL W CON, 08/31/2020, 9:13. FINDINGS: Image quality: Diagnostic, given the low radiation dose technique. Lungs and pleura: No acute airspace opacities. Pulmonary scarring and pleural thickening is redemonstrated at the posterior left lung base, unchanged from August 31, 2020. No new pulmonary nodules. Mediastinum: Heart size is normal. No pericardial effusion. No mediastinal adenopathy by size criteria. Thoracic aorta and central pulmonary arteries are normal in size. Esophagus is normal in caliber. No hiatal hernia. Bones and chest wall: There is a left Port-A-Cath, the tip of which is in the SVC. No suspicious bony lesions. No vertebral body compression fractures. No axillary or supraclavicular adenopathy by size criteria. Thyroid gland is unremarkable . Abdomen: Visualized upper abdomen solid organs and bowel loops appear normal in the absence of contrast. IMPRESSION: 1. No acute airspace opacities or suspicious pulmonary nodules. Pulmonary scar at the left lung base is stable. Fleischner Society criteria for SOLID lung nodule followup. Nodule size (mm)Low-risk patientHigh-risk patient<6 (single or multiple)No routine followup.Optional CT at 12 months. 6-8 (single or multiple)CT at 6-12 months, then optional CT at 18-24 mo.CT at 6-12 months, then CT at 18-24 months. >8 (single)CT at 3 months, PET-CT, or biopsy. Same as for low-risk pts. >8 (multiple)CT at 3-6 months, then optional CT at 18-24 mo.CT at 3-6 months, then CT at 18-24 months. Fleischner Society criteria for SUB-SOLID lung nodule followup. Solitary pure ground-glass nodules<6 mm (ground glass or part solid)No followup needed. 6 mm or larger (ground glass)CT at 6-12 months to confirm persistence, then CT every 2 years until 5 years.6 mm or larger (part solid)CT at 3-6 months to confirm persistence, then annual CT until 5 years if unchanged and solid component remains <6 mm. Multiple sub-solid nodules<6 mmCT at 3-6 months, then CT consider at 2 & 4 years for high risk patients. [address] at 3-6 months. Subsequent management based on most suspicious lesions. Recommendations do not apply to lung cancer screening, patients with immunosuppression, or patients with known primary cancer. Dictated by: Rosemary Goodman M.D. on 11/05/2022 at 10:14 Approved by: Rosemary Goodman M.D. on 11/05/2022 at 10:32
== END ==
PROVIDERS: Referring Provider Internal Medicine Hematology & Oncology; Visit Provider Internal Medicine Hematology & Oncology
DX: C61 Malignant neoplasm of prostate (principal); R91.1 Solitary pulmonary nodule
CPT/HCPCS: 71250

== ENCOUNTER → 2022-12-13 07:20 | Outpatient (CLI) | payer MEDICARE, OTHER, SELFPAY ==
--- NOTE | 2022-12-13 07:21 | DI.CT.S_ITS ---
PROCEDURE: CT CHEST ABD PEL W CON INDICATIONS: CRPC TECHNIQUE: After the administration of oral and intravenous contrast, axial sections acquired from the supraclavicular neck to the pubic symphysis. Coronal and sagittal reformats were performed. For radiation dose reduction, the following was used: automated exposure control, adjustment of mA and/or kV according to patient size. COMPARISON: [facility], CT, CT CHEST ABD PEL W CON, 07/06/2022, 8:15. FINDINGS: Image quality: Excellent. CHEST: Lower Neck: No enlarged lymph nodes. Thyroid: Within normal limits. Axillae: No enlarged lymph nodes. Chest Wall: Unremarkable. Lungs and Airways: Pleural parenchymal band within the superior left lower lobe. Cardiogenic fat pad on the left. Multiple pulmonary nodules are stable from prior. Examples include: -3 millimeter solid nodule, right upper lobe (series 4, image 93). -3 millimeter solid nodule, lateral left upper lobe (series 4, image 59). -4 millimeters solid nodule, lateral left upper lobe (series 4, image 113). Pleura: No pneumothorax or pleural effusions. Heart: Heart size is normal. No pericardial effusion. Marked coronary artery calcifications for age. Thoracic Vessels: The aorta and pulmonary arteries demonstrate normal size. Mediastinum and Ivy: No enlarged lymph nodes. Esophagus: No wall thickening. No hiatal hernia. ABDOMEN: Liver: Unremarkable. Gallbladder: Unremarkable. Biliary ducts: Unremarkable. Pancreas: Unremarkable. Spleen: Unremarkable. Adrenal Glands: Unremarkable. Kidneys and Ureters: No complex renal cystic lesions which require follow-up. Stomach and Bowel: Stomach, small bowel loops, and colon are unremarkable. Peritoneum: No abnormal intraperitoneal fluid. No free air. Ventral Wall: No hernia. Abdominal Nodes: No retroperitoneal or mesenteric adenopathy by size criteria. Vessels: Aorta and inferior vena cava are normal in size. PELVIS: Pelvic Organs: Enhancing prostate nodule in the left peripheral mid gland measuring 1.6 x 2.2 centimeters, with associated capsular bulging. Bladder: Unremarkable. Pelvic Nodes: No enlarged lymph nodes. Miscellaneous: No inguinal hernias are seen. Bones: Stable dense lesions of the L1, L2 and right iliac bone. IMPRESSION: 1. Enhancing prostate nodule in the left peripheral mid gland measuring 1.6 x 1.2 centimeters, with capsular bulging. This probably represents the primary malignancy. No evidence of ceci disease. 2. Stable dense lesions of the L1, L2 and right iliac bone. 3. Marked coronary artery calcifications for age. Consider cardiology referral. 4. Stable pulmonary nodules. Dictated by: Olegario Aguilar M.D. on 12/13/2022 at 9:07 Approved by: Olegario Aguilar M.D. on 12/13/2022 at 9:21
--- NOTE | 2022-12-13 07:21 | DI.NM.S_ITS ---
PROCEDURE: [place] BONE SCAN WHOLE BODY RADIOPHARMACEUTICAL: 22.0 mCi Tc-99m MDP IV. INDICATIONS: CRPC TECHNIQUE: Delayed whole-body scintigrams were obtained approximately 3-4 hours after intravenous injection of radiotracer. Anterior and posterior views were acquired from vertex to feet. COMPARISON: [facility], CT, CT CHEST WO CON, 11/05/2022, 6:51. [facility], CT, CT CHEST ABD PEL W CON, 08/31/2020, 9:13. [place], [place] BONE SCAN WHOLE BODY, 08/31/2020, 12:40. [place], [place] BONE SCAN WHOLE BODY, 11/27/2021, 11:59. [facility], CT, CT CHEST ABD PEL W CON, 07/06/2022, 8:15. [place], [place] BONE SCAN WHOLE BODY, 07/06/2022, 11:25. [facility], CT, CT CHEST ABD PEL W CON, 12/13/2022, 8:09. FINDINGS: There are foci of abnormal uptake involving the posterior medial aspect of the left 2nd rib, and the right iliac bone adjacent to the sacroiliac joint, as seen on the last exam. These correlate with sclerotic bone lesions seen on the comparison CT. Overall, there is no significant change from the last exam. Foci of increased uptake in the left 9th rib, and the right 6, 7th, and 8th ribs are seen, suspicious for metastases. A differential diagnoses are degenerative changed in trauma. On the comparison CT, there is an old right 7th rib fracture posterior medially. Prominent osteophytes are seen in the right side [id number] thoracic spine. IMPRESSION: Overall stable bone scan with this patient with known osseous metastatic disease. Dictated by: Odalys Martínez M.D. on 12/13/2022 at 16:34 Approved by: Odalys Martínez M.D. on 12/13/2022 at 16:48
== END ==
PROVIDERS: Referring Provider Internal Medicine Hematology & Oncology; Visit Provider Internal Medicine Hematology & Oncology
DX: C61 Malignant neoplasm of prostate (principal); R91.8 Other nonspecific abnormal finding of lung field
CPT/HCPCS: 71260; 74177; 78306; A9503; Q9967